=== PATIENT | male | born 1935 | race Caucasian/White ===

== ENCOUNTER 2018-08-15 16:36 | Inpatient (IN) | payer MEDICARE, BC, MEDICAID ==
[2018-08-15 17:03] LABS: ADD MAN DIFF? NO
[2018-08-15] MEDS ORDERED: ATROPINE 1 MG/10 ML SYRINGE (17:04)
[2018-08-15] MEDS: ATROPINE 0.4 MG INJ IV (17:04)
[2018-08-15 17:12] LABS: WHITE BLOOD COUNT 9.7 10^3/ul (4.8-10.8)
[2018-08-15 17:12] LABS: BASOPHIL # 0.1 10^3/ul (0.0-0.1); BASOPHILS % 0.7 % (0.0-2.0); EOSINOPHILS # 0.6 10^3/ul (0.0-0.5); EOSINOPHILS % 5.8 % (0.0-7.0); HEMATOCRIT 40.7 % (42.0-52.0); HEMOGLOBIN 12.3 g/dl (14.0-18.0); LYMPHOCYTES # 2.2 10^3/ul (0.8-2.9); LYMPHOCYTES % 22.8 % (15.0-51.0); MEAN CORPUSCULAR HEMOGLOBIN 24.7 pg (29.0-33.0); MEAN CORPUSCULAR HGB CONC 30.2 g/dl (32.0-37.0); MEAN CORPUSCULAR VOLUME 81.9 fl (82.0-101.0); MEAN PLATELET VOLUME 11.3 fl (7.4-10.4); MONOCYTE # 0.8 10^3/ul (0.3-0.9); MONOCYTES % 8.6 % (0.0-11.0); NEUTROPHILS % 61.8 % (39.0-77.0); PLATELET COUNT 322 10^3/UL (140-415); RED BLOOD COUNT 4.97 10^6/ul (4.70-6.10); RED CELL DISTRIBUTION WIDTH 17.9 % (11.5-14.5)
[2018-08-15 17:31] LABS: ANION GAP 6 (5-13); BLOOD UREA NITROGEN 29 mg/dl (7-20); CALCIUM 8.6 mg/dl (8.4-10.2); CARBON DIOXIDE 30 mmol/L (21-31); CHLORIDE 108 mmol/L (97-110); CREATININE 0.69 mg/dl (0.61-1.24); GLUCOSE 113 mg/dl (70-220); POTASSIUM 4.4 mmol/L (3.5-5.1); SODIUM 144 mmol/L (135-144)
[2018-08-15 17:42] LABS: TROPONIN-I < 0.012 ng/ml (0.000-0.120)
[2018-08-15] MEDS: ATROPINE 1 MG/10 ML SYRINGE IV ×3 (18:34→22:15)
[2018-08-15] MEDS: SOD CHLORIDE 0.9% 100 ML (18:39)
[2018-08-15] MEDS: IOHEXOL 100 ML (18:39)
[2018-08-15] MEDS: FUROSEMIDE 20 MG INJ IV (19:22)
[2018-08-15] MEDS ORDERED: GLUCAGON 1 MG INJ IM (19:30)
[2018-08-15] MEDS ORDERED: GLUCOSE GEL 15 GRAM TUBE BUCCAL (19:30)
[2018-08-15] MEDS ORDERED: GLUCOSE GEL 15 GRAM TUBE PO ×2 (19:30)
[2018-08-15] MEDS ORDERED: DEXTROSE 50% 50 ML SYRINGE IV ×2 (19:30)
[2018-08-15] MEDS: SOD CHLORIDE 0.9% 1,000 ML IV (19:39)
[2018-08-15 19:48] LABS: HEMOGLOBIN A1C 8.4 % (0-5.9)
[2018-08-15] MEDS: INSULIN ASPART [NOVOLOG] 3 ML PEN SC (21:00)
[2018-08-15] MEDS: HEPARIN 5,000 UNIT/1 ML VIAL SC (21:18)
[2018-08-15 23:22] LABS: CK INDEX 1.1; CK-MB 0.38 ng/ml (0.0-2.4); CREATINE KINASE 35 IU/L (23-200); TROPONIN-I < 0.012 ng/ml (0.000-0.120)
[2018-08-15] MEDS: ALBUTEROL 0.083% (NEB) 2.5 MG/3 ML AMP HHN (23:49)
[2018-08-16 05:19] LABS: ADD MAN DIFF? NO
[2018-08-16] MEDS: SOD CHLORIDE 0.9% 1,000 ML IV (05:19)
[2018-08-16] MEDS: FUROSEMIDE 40 MG TAB PO (05:19)
[2018-08-16 05:26] LABS: BASOPHIL # 0.1 10^3/ul (0.0-0.1); BASOPHILS % 0.7 % (0.0-2.0); EOSINOPHILS # 0.4 10^3/ul (0.0-0.5); EOSINOPHILS % 4.1 % (0.0-7.0); HEMATOCRIT 38.3 % (42.0-52.0); HEMOGLOBIN 11.5 g/dl (14.0-18.0); LYMPHOCYTES # 1.6 10^3/ul (0.8-2.9); LYMPHOCYTES % 18.1 % (15.0-51.0); MEAN CORPUSCULAR HEMOGLOBIN 24.7 pg (29.0-33.0); MEAN CORPUSCULAR VOLUME 82.2 fl (82.0-101.0); MEAN PLATELET VOLUME 12.7 fl (7.4-10.4); MONOCYTE # 0.7 10^3/ul (0.3-0.9); MONOCYTES % 7.3 % (0.0-11.0); NEUTROPHIL # 6.2 10^3/ul (1.6-7.5); NEUTROPHILS % 69.5 % (39.0-77.0); PLATELET COUNT 280 10^3/UL (140-415); RED BLOOD COUNT 4.66 10^6/ul (4.70-6.10); RED CELL DISTRIBUTION WIDTH 18.1 % (11.5-14.5)
[2018-08-16 05:54] LABS: CREATINE KINASE 54 IU/L (23-200)
[2018-08-16 05:56] LABS: ALBUMIN 3.4 g/dl (3.3-4.9); ANION GAP 5 (5-13); BLOOD UREA NITROGEN 25 mg/dl (7-20); CALCIUM 8.1 mg/dl (8.4-10.2); CARBON DIOXIDE 30 mmol/L (21-31); CHLORIDE 106 mmol/L (97-110); CREATININE 0.62 mg/dl (0.61-1.24); GLUCOSE 188 mg/dl (70-220); PHOSPHORUS 4.9 mg/dl (2.5-4.9); POTASSIUM 5.3 mmol/L (3.5-5.1); SODIUM 141 mmol/L (135-144)
[2018-08-16 06:06] LABS: CK INDEX 0.9; CK-MB 0.49 ng/ml (0.0-2.4); TROPONIN-I 0.019 ng/ml (0.000-0.120)
[2018-08-16 06:16] LABS: FREE T4 (FREE THYROXINE) 1.06 ng/dl (0.85-1.93)
[2018-08-16 06:17] LABS: FREE T3 3.24 pg/ml (2.77-5.27)
[2018-08-16] MEDS: INSULIN ASPART [NOVOLOG] 3 ML PEN SC ×4 (08:28→21:00)
[2018-08-16] MEDS: LISINOPRIL 10 MG TAB PO (08:38)
[2018-08-16] MEDS: ASPIRIN (EC) 81 MG TAB PO (08:38)
[2018-08-16] MEDS: MAGNESIUM HYDROXIDE 30ML CUP PO (08:38)
[2018-08-16] MEDS: DOCUSATE SODIUM 100 MG CAP PO ×2 (08:38→21:04)
[2018-08-16] MEDS: HEPARIN 5,000 UNIT/1 ML VIAL SC ×2 (08:44→21:10)
[2018-08-16] MEDS: NPH, HUMAN INSULIN ISOPHANE 3ML VIAL SC ×2 (08:45→21:00)
[2018-08-16] MEDS ORDERED: DOXYCYCLINE 100 MG in SOD CHLORIDE 0.9% 250 ML IVPB (09:30)
[2018-08-16 10:29] LABS: POTASSIUM 4.3 mmol/L (3.5-5.1)
[2018-08-16] MEDS: CEFAZOLIN 1 GM/50 ML (PMX) 50 ML IVPB ×2 (11:58→20:40)
[2018-08-16] MEDS ORDERED: CEFAZOLIN 1 GM/50 ML (PMX) 50 ML IVPB (14:00)
[2018-08-16] MEDS: DOXYCYCLINE 100 MG in SOD CHLORIDE 0.9% 250 ML IVPB ×2 (15:15→23:20)
[2018-08-16] MEDS: FUROSEMIDE 20 MG INJ IV (18:53)
[2018-08-16] MEDS ORDERED: MIDAZOLAM 1 MG/ML 2 ML INJ (19:22)
[2018-08-16] MEDS ORDERED: FENTAnyl 50 MCG/ML VIAL (19:23)
[2018-08-16] MEDS ORDERED: PROPOFOL 100 ML (19:36)
[2018-08-16] MEDS ORDERED: LIDOCAINE 2% (SDV) 5 ML INJ (19:36)
[2018-08-16] MEDS ORDERED: CEFAZOLIN 1 GM INJ (19:36)
[2018-08-16] MEDS: LIDOCAINE 1%/EPI (1:100,000) (MDV) 20 ML (19:44)
[2018-08-16] MEDS: IOHEXOL 300MG/ML 30 ML BTL (19:50)
[2018-08-16] MEDS: POLYMYXIN/BACITRACIN 1L IRRIG (19:56)
[2018-08-16] MEDS ORDERED: hydrALAzine 20 MG INJ IV (20:30)
[2018-08-16] MEDS ORDERED: DIPHENHYDRAMINE 50 MG INJ IV (20:30)
[2018-08-16] MEDS ORDERED: ONDANSETRON 4 MG INJ IV (20:30)
[2018-08-16] MEDS ORDERED: EPHEDrine SULFATE 50 MG/5 ML SYG IV (20:30)
[2018-08-16] MEDS ORDERED: FENTAnyl 50 MCG/ML VIAL IV ×3 (20:30)
[2018-08-16] MEDS ORDERED: LABETALOL HCL 20MG INJ IV (20:30)
[2018-08-16] MEDS ORDERED: ALBUTEROL 0.083% (NEB) 2.5 MG/3 ML AMP HHN (20:30)
[2018-08-16] MEDS ORDERED: MIDAZOLAM 1 MG/ML 2 ML INJ IV (20:30)
[2018-08-16] MEDS: SENNA TAB PO (21:04)
[2018-08-16] MEDS: ATORVASTATIN 40 MG TAB PO (21:05)
[2018-08-16] MEDS: FAMOTIDINE 20 MG TAB PO (21:05)
[2018-08-16] MEDS: morphine 2 MG INJ IV (22:57)
[2018-08-17] MEDS: CEFAZOLIN 2 GM/50 ML (PMX) 50 ML IVPB (06:15)
[2018-08-17] MEDS: FUROSEMIDE 20 MG INJ IV ×2 (06:16→17:35)
[2018-08-17 07:31] LABS: ADD MAN DIFF? NO
[2018-08-17 07:34] LABS: BASOPHIL # 0.1 10^3/ul (0.0-0.1); BASOPHILS % 0.4 % (0.0-2.0); EOSINOPHILS % 0.3 % (0.0-7.0); HEMATOCRIT 35.7 % (42.0-52.0); LYMPHOCYTES # 1.4 10^3/ul (0.8-2.9); MEAN CORPUSCULAR HEMOGLOBIN 24.9 pg (29.0-33.0); MEAN CORPUSCULAR HGB CONC 30.8 g/dl (32.0-37.0); MEAN PLATELET VOLUME 10.9 fl (7.4-10.4); MONOCYTE # 0.9 10^3/ul (0.3-0.9); MONOCYTES % 6.7 % (0.0-11.0); NEUTROPHIL # 10.5 10^3/ul (1.6-7.5); NEUTROPHILS % 81.1 % (39.0-77.0); PLATELET COUNT 245 10^3/UL (140-415); RED BLOOD COUNT 4.41 10^6/ul (4.70-6.10); RED CELL DISTRIBUTION WIDTH 17.7 % (11.5-14.5)
[2018-08-17 07:34] LABS: WHITE BLOOD COUNT 12.9 10^3/ul (4.8-10.8)
[2018-08-17 08:06] LABS: ANION GAP 8 (5-13); BLOOD UREA NITROGEN 16 mg/dl (7-20); CALCIUM 7.8 mg/dl (8.4-10.2); CARBON DIOXIDE 29 mmol/L (21-31); CHLORIDE 104 mmol/L (97-110); CREATININE 0.59 mg/dl (0.61-1.24); GLUCOSE 205 mg/dl (70-220); POTASSIUM 3.7 mmol/L (3.5-5.1); SODIUM 141 mmol/L (135-144)
[2018-08-17 08:07] LABS: CHOL/HDL RATIO 5.5 RATIO; HDL CHOLESTEROL 20 mg/dl (31-75); LDL CHOLESTEROL,CALCULATED 67 mg/dl; TRIGLYCERIDES 116 mg/dl (0-149)
[2018-08-17 08:07] LABS: CHOLESTEROL 110 mg/dl (100-200)
[2018-08-17] MEDS: HEPARIN 5,000 UNIT/1 ML VIAL SC ×2 (09:22→20:54)
[2018-08-17] MEDS: DOXYCYCLINE 100 MG in SOD CHLORIDE 0.9% 250 ML IVPB ×2 (09:28→20:58)
[2018-08-17] MEDS: MAGNESIUM HYDROXIDE 30ML CUP PO (09:28)
[2018-08-17] MEDS: FAMOTIDINE 20 MG TAB PO ×2 (09:29→20:26)
[2018-08-17] MEDS: LISINOPRIL 10 MG TAB PO (09:29)
[2018-08-17] MEDS: ASPIRIN (EC) 81 MG TAB PO (09:29)
[2018-08-17] MEDS: DOCUSATE SODIUM 100 MG CAP PO ×2 (09:29→20:26)
[2018-08-17] MEDS: HYDROCHLOROTHIAZIDE 12.5 MG CAP PO (09:29)
[2018-08-17] MEDS: INSULIN ASPART [NOVOLOG] 3 ML PEN SC ×4 (09:45→20:55)
[2018-08-17] MEDS: NPH, HUMAN INSULIN ISOPHANE 3ML VIAL SC ×2 (09:46→20:53)
[2018-08-17] MEDS ORDERED: DOCUSATE SODIUM 100 MG CAP PO (11:00)
[2018-08-17] MEDS: CEFAZOLIN 1 GM/50 ML (PMX) 50 ML IVPB ×2 (13:27→22:06)
[2018-08-17] MEDS: ATORVASTATIN 40 MG TAB PO (20:26)
[2018-08-17] MEDS: SENNA TAB PO (20:26)
[2018-08-18] MEDS: NA PHOSPHATE/BIPHOS 133 ML ENEMA PR (01:12)
[2018-08-18] MEDS: FUROSEMIDE 20 MG INJ IV (05:04)
[2018-08-18] MEDS: CEFAZOLIN 1 GM/50 ML (PMX) 50 ML IVPB (05:05)
[2018-08-18 06:50] LABS: ADD MAN DIFF? NO
[2018-08-18 06:57] LABS: BASOPHIL # 0.1 10^3/ul (0.0-0.1); BASOPHILS % 0.5 % (0.0-2.0); EOSINOPHILS # 0.2 10^3/ul (0.0-0.5); EOSINOPHILS % 2.3 % (0.0-7.0); HEMATOCRIT 34.9 % (42.0-52.0); HEMOGLOBIN 10.8 g/dl (14.0-18.0); LYMPHOCYTES # 1.7 10^3/ul (0.8-2.9); MEAN CORPUSCULAR HGB CONC 30.9 g/dl (32.0-37.0); MEAN CORPUSCULAR VOLUME 80.8 fl (82.0-101.0); MEAN PLATELET VOLUME 11.5 fl (7.4-10.4); MONOCYTE # 0.7 10^3/ul (0.3-0.9); MONOCYTES % 7.9 % (0.0-11.0); NEUTROPHIL # 6.5 10^3/ul (1.6-7.5); NEUTROPHILS % 71.1 % (39.0-77.0); PLATELET COUNT 241 10^3/UL (140-415); RED BLOOD COUNT 4.32 10^6/ul (4.70-6.10); RED CELL DISTRIBUTION WIDTH 17.7 % (11.5-14.5)
[2018-08-18 06:57] LABS: WHITE BLOOD COUNT 9.2 10^3/ul (4.8-10.8)
[2018-08-18 07:21] LABS: ANION GAP 7 (5-13); BLOOD UREA NITROGEN 17 mg/dl (7-20); CALCIUM 7.6 mg/dl (8.4-10.2); CARBON DIOXIDE 32 mmol/L (21-31); CHLORIDE 102 mmol/L (97-110); CREATININE 0.58 mg/dl (0.61-1.24); GLUCOSE 164 mg/dl (70-220); MAGNESIUM 1.6 mg/dl (1.7-2.5); PHOSPHORUS 3.6 mg/dl (2.5-4.9); POTASSIUM 3.4 mmol/L (3.5-5.1); SODIUM 141 mmol/L (135-144)
[2018-08-18] MEDS: MAGNESIUM HYDROXIDE 30ML CUP PO (08:21)
[2018-08-18] MEDS: DOCUSATE SODIUM 100 MG CAP PO ×2 (08:22→20:30)
[2018-08-18] MEDS: HYDROCHLOROTHIAZIDE 12.5 MG CAP PO (08:22)
[2018-08-18] MEDS: ASPIRIN (EC) 81 MG TAB PO (08:22)
[2018-08-18] MEDS: FAMOTIDINE 20 MG TAB PO ×2 (08:23→20:30)
[2018-08-18] MEDS: LISINOPRIL 10 MG TAB PO (08:23)
[2018-08-18] MEDS: DOXYCYCLINE 100 MG in SOD CHLORIDE 0.9% 250 ML IVPB (08:35)
[2018-08-18] MEDS: NPH, HUMAN INSULIN ISOPHANE 3ML VIAL SC ×2 (08:43→20:41)
[2018-08-18] MEDS: INSULIN ASPART [NOVOLOG] 3 ML PEN SC ×4 (08:43→20:41)
[2018-08-18] MEDS: HEPARIN 5,000 UNIT/1 ML VIAL SC ×2 (08:44→20:42)
[2018-08-18] MEDS: CEPHALEXIN 500 MG CAP PO ×2 (11:56→17:04)
[2018-08-18] MEDS: POTASSIUM CHLORIDE 20 MEQ POWDER FOR ORAL SOLN PO (12:45)
[2018-08-18] MEDS: MAGNESIUM SULFATE 2 GM/50 ML 50 ML IVPB (12:46)
[2018-08-18] MEDS: FUROSEMIDE 40 MG TAB PO (17:04)
[2018-08-18] MEDS: DOXYCYCLINE 100 MG TAB PO (20:30)
[2018-08-18] MEDS: SENNA TAB PO (20:30)
[2018-08-18] MEDS: ATORVASTATIN 40 MG TAB PO (20:30)
[2018-08-19] MEDS: CEPHALEXIN 500 MG CAP PO ×5 (00:08→23:12)
[2018-08-19] MEDS: FUROSEMIDE 40 MG TAB PO (06:06)
[2018-08-19 08:28] LABS: ADD MAN DIFF? NO
[2018-08-19 08:41] LABS: BASOPHIL # 0.1 10^3/ul (0.0-0.1); BASOPHILS % 0.6 % (0.0-2.0); EOSINOPHILS # 0.4 10^3/ul (0.0-0.5); EOSINOPHILS % 3.4 % (0.0-7.0); HEMOGLOBIN 11.4 g/dl (14.0-18.0); LYMPHOCYTES # 1.5 10^3/ul (0.8-2.9); MEAN CORPUSCULAR HEMOGLOBIN 24.8 pg (29.0-33.0); MEAN CORPUSCULAR HGB CONC 30.8 g/dl (32.0-37.0); MEAN CORPUSCULAR VOLUME 80.6 fl (82.0-101.0); MEAN PLATELET VOLUME 11.7 fl (7.4-10.4); MONOCYTE # 0.8 10^3/ul (0.3-0.9); MONOCYTES % 7.5 % (0.0-11.0); NEUTROPHIL # 7.4 10^3/ul (1.6-7.5); NEUTROPHILS % 72.9 % (39.0-77.0); PLATELET COUNT 264 10^3/UL (140-415); RED BLOOD COUNT 4.59 10^6/ul (4.70-6.10); RED CELL DISTRIBUTION WIDTH 17.7 % (11.5-14.5)
[2018-08-19 08:41] LABS: WHITE BLOOD COUNT 10.2 10^3/ul (4.8-10.8)
[2018-08-19] MEDS: INSULIN ASPART [NOVOLOG] 3 ML PEN SC ×4 (08:45→21:00)
[2018-08-19 08:58] LABS: ANION GAP 9 (5-13); BLOOD UREA NITROGEN 14 mg/dl (7-20); CALCIUM 8.4 mg/dl (8.4-10.2); CARBON DIOXIDE 30 mmol/L (21-31); CHLORIDE 101 mmol/L (97-110); CREATININE 0.56 mg/dl (0.61-1.24); GLUCOSE 192 mg/dl (70-220); PHOSPHORUS 3.6 mg/dl (2.5-4.9); POTASSIUM 3.9 mmol/L (3.5-5.1); SODIUM 140 mmol/L (135-144)
[2018-08-19] MEDS: FAMOTIDINE 20 MG TAB PO ×2 (09:05→21:27)
[2018-08-19] MEDS: LISINOPRIL 10 MG TAB PO (09:05)
[2018-08-19] MEDS: ASPIRIN (EC) 81 MG TAB PO (09:05)
[2018-08-19] MEDS: DOXYCYCLINE 100 MG TAB PO ×2 (09:05→21:27)
[2018-08-19] MEDS: DOCUSATE SODIUM 100 MG CAP PO ×2 (09:06→21:27)
[2018-08-19] MEDS: MAGNESIUM HYDROXIDE 30ML CUP PO (09:06)
[2018-08-19] MEDS: HYDROCHLOROTHIAZIDE 12.5 MG CAP PO (09:06)
[2018-08-19] MEDS: HEPARIN 5,000 UNIT/1 ML VIAL SC ×2 (09:13→21:54)
[2018-08-19] MEDS: NPH, HUMAN INSULIN ISOPHANE 3ML VIAL SC ×2 (10:45→21:54)
[2018-08-19] MEDS: SOD CHLORIDE 0.9% 100 ML (13:10)
[2018-08-19] MEDS: IOHEXOL 300MG/ML 150 ML BTL (13:10)
[2018-08-19] MEDS: FUROSEMIDE 20 MG TAB PO (17:35)
[2018-08-19] MEDS: SENNA TAB PO (21:27)
[2018-08-19] MEDS: ATORVASTATIN 40 MG TAB PO (21:27)
[2018-08-19] MEDS: hydrALAzine 20 MG INJ IV (23:08)
[2018-08-20] MEDS: morphine 2 MG INJ IV (04:47)
[2018-08-20 06:12] LABS: ADD MAN DIFF? NO
[2018-08-20 06:21] LABS: WHITE BLOOD COUNT 9.6 10^3/ul (4.8-10.8)
[2018-08-20 06:21] LABS: BASOPHIL # 0.1 10^3/ul (0.0-0.1); BASOPHILS % 0.5 % (0.0-2.0); EOSINOPHILS # 0.3 10^3/ul (0.0-0.5); EOSINOPHILS % 3.4 % (0.0-7.0); HEMATOCRIT 36.9 % (42.0-52.0); HEMOGLOBIN 11.5 g/dl (14.0-18.0); LYMPHOCYTES # 1.7 10^3/ul (0.8-2.9); LYMPHOCYTES % 17.9 % (15.0-51.0); MEAN CORPUSCULAR HEMOGLOBIN 24.9 pg (29.0-33.0); MEAN CORPUSCULAR HGB CONC 31.2 g/dl (32.0-37.0); MEAN PLATELET VOLUME 11.4 fl (7.4-10.4); MONOCYTE # 0.7 10^3/ul (0.3-0.9); MONOCYTES % 7.7 % (0.0-11.0); NEUTROPHIL # 6.7 10^3/ul (1.6-7.5); NEUTROPHILS % 70.2 % (39.0-77.0); PLATELET COUNT 283 10^3/UL (140-415); RED BLOOD COUNT 4.61 10^6/ul (4.70-6.10); RED CELL DISTRIBUTION WIDTH 17.9 % (11.5-14.5)
[2018-08-20] MEDS: CEPHALEXIN 500 MG CAP PO ×3 (06:45→17:46)
[2018-08-20] MEDS: FUROSEMIDE 20 MG TAB PO ×2 (06:46→17:46)
[2018-08-20 06:52] LABS: ANION GAP 9 (5-13); BLOOD UREA NITROGEN 19 mg/dl (7-20); CALCIUM 8.2 mg/dl (8.4-10.2); CARBON DIOXIDE 31 mmol/L (21-31); CHLORIDE 100 mmol/L (97-110); CREATININE 0.63 mg/dl (0.61-1.24); GLUCOSE 147 mg/dl (70-220); MAGNESIUM 2.1 mg/dl (1.7-2.5); PHOSPHORUS 4.7 mg/dl (2.5-4.9); POTASSIUM 3.9 mmol/L (3.5-5.1); SODIUM 140 mmol/L (135-144)
[2018-08-20] MEDS: INSULIN ASPART [NOVOLOG] 3 ML PEN SC ×4 (08:39→22:55)
[2018-08-20] MEDS: DOCUSATE SODIUM 100 MG CAP PO ×2 (08:41→22:54)
[2018-08-20] MEDS: FAMOTIDINE 20 MG TAB PO ×2 (08:42→22:54)
[2018-08-20] MEDS: DOXYCYCLINE 100 MG TAB PO ×2 (08:42→22:54)
[2018-08-20] MEDS: ASPIRIN (EC) 81 MG TAB PO (08:43)
[2018-08-20] MEDS: HYDROCHLOROTHIAZIDE 12.5 MG CAP PO (08:43)
[2018-08-20] MEDS: HEPARIN 5,000 UNIT/1 ML VIAL SC ×2 (08:44→22:59)
[2018-08-20] MEDS: MAGNESIUM HYDROXIDE 30ML CUP PO (08:51)
[2018-08-20] MEDS: LISINOPRIL 20 MG TAB PO (08:53)
[2018-08-20] MEDS: NPH, HUMAN INSULIN ISOPHANE 3ML VIAL SC ×2 (09:27→22:58)
[2018-08-20 12:47] LABS: INR 0.94; PROTIME 12.7 Sec (11.9-14.9)
[2018-08-20 12:52] LABS: PARTIAL THROMBOPLASTIN TIME 30.3 Sec (23.0-35.0)
[2018-08-20] MEDS: NA PHOSPHATE/BIPHOS 133 ML ENEMA PR ×2 (17:05→18:34)
[2018-08-20] MEDS: CARBOXYMETHYLCELLULOSE 0.5% 0.4 ML OPH BOTH EYES ×2 (17:06→22:59)
[2018-08-20] MEDS ORDERED: LACTULOSE 30ML CUP PO (18:00)
[2018-08-20] MEDS: ATORVASTATIN 40 MG TAB PO (22:54)
[2018-08-20] MEDS: SENNA TAB PO (22:54)
[2018-08-20] MEDS: LIDOCAINE 1% (MPF) 5 ML VIAL SC (22:55)
[2018-08-20] MEDS: LACTULOSE 30ML CUP PO (23:13)
[2018-08-21] MEDS: CEPHALEXIN 500 MG CAP PO ×4 (00:58→17:44)
[2018-08-21 05:49] LABS: ADD MAN DIFF? NO
[2018-08-21 05:56] LABS: BASOPHIL # 0.1 10^3/ul (0.0-0.1); BASOPHILS % 0.5 % (0.0-2.0); EOSINOPHILS # 0.4 10^3/ul (0.0-0.5); HEMATOCRIT 36.6 % (42.0-52.0); HEMOGLOBIN 11.4 g/dl (14.0-18.0); MEAN CORPUSCULAR HEMOGLOBIN 25.2 pg (29.0-33.0); MEAN CORPUSCULAR HGB CONC 31.1 g/dl (32.0-37.0); MEAN PLATELET VOLUME 11.4 fl (7.4-10.4); MONOCYTES % 9.6 % (0.0-11.0); NEUTROPHIL # 6.5 10^3/ul (1.6-7.5); NEUTROPHILS % 65.2 % (39.0-77.0); PLATELET COUNT 290 10^3/UL (140-415); RED BLOOD COUNT 4.52 10^6/ul (4.70-6.10); RED CELL DISTRIBUTION WIDTH 17.7 % (11.5-14.5)
[2018-08-21] MEDS: FUROSEMIDE 20 MG TAB PO ×2 (06:36→17:44)
[2018-08-21] MEDS: MAGNESIUM HYDROXIDE 30ML CUP PO ×2 (06:36→09:41)
[2018-08-21] MEDS: BISACODYL 10 MG SUPP PR (06:36)
[2018-08-21 06:43] LABS: ANION GAP 9 (5-13); BLOOD UREA NITROGEN 21 mg/dl (7-20); CALCIUM 8.5 mg/dl (8.4-10.2); CARBON DIOXIDE 32 mmol/L (21-31); CHLORIDE 99 mmol/L (97-110); CREATININE 0.67 mg/dl (0.61-1.24); GLUCOSE 154 mg/dl (70-220); MAGNESIUM 2.2 mg/dl (1.7-2.5); PHOSPHORUS 4.9 mg/dl (2.5-4.9); POTASSIUM 3.8 mmol/L (3.5-5.1); SODIUM 140 mmol/L (135-144)
[2018-08-21] MEDS: NA PHOSPHATE/BIPHOS 133 ML ENEMA PR ×2 (08:00→09:34)
[2018-08-21] MEDS: CARBOXYMETHYLCELLULOSE 0.5% 0.4 ML OPH BOTH EYES ×5 (09:31→22:37)
[2018-08-21] MEDS: DOCUSATE SODIUM 100 MG CAP PO ×2 (09:32→21:02)
[2018-08-21] MEDS: DOXYCYCLINE 100 MG TAB PO ×2 (09:32→21:02)
[2018-08-21] MEDS: LISINOPRIL 20 MG TAB PO (09:33)
[2018-08-21] MEDS: ASPIRIN (EC) 81 MG TAB PO (09:33)
[2018-08-21] MEDS: FAMOTIDINE 20 MG TAB PO ×2 (09:33→21:02)
[2018-08-21] MEDS: HYDROCHLOROTHIAZIDE 12.5 MG CAP PO (09:33)
[2018-08-21] MEDS: HEPARIN 5,000 UNIT/1 ML VIAL SC ×2 (09:37→21:05)
[2018-08-21] MEDS: NPH, HUMAN INSULIN ISOPHANE 3ML VIAL SC ×2 (09:38→21:04)
[2018-08-21] MEDS: INSULIN ASPART [NOVOLOG] 3 ML PEN SC ×4 (09:38→21:04)
[2018-08-21] MEDS: metFORMIN 500 MG TAB PO ×2 (10:32→17:44)
[2018-08-21] MEDS: ATORVASTATIN 40 MG TAB PO (21:02)
[2018-08-21] MEDS: SENNA TAB PO (21:02)
[2018-08-22] MEDS: CEPHALEXIN 500 MG CAP PO ×4 (00:41→17:22)
[2018-08-22 05:19] LABS: ADD MAN DIFF? NO
[2018-08-22 05:31] LABS: WHITE BLOOD COUNT 9.7 10^3/ul (4.8-10.8)
[2018-08-22 05:31] LABS: BASOPHIL # 0.1 10^3/ul (0.0-0.1); BASOPHILS % 0.5 % (0.0-2.0); EOSINOPHILS # 0.5 10^3/ul (0.0-0.5); EOSINOPHILS % 4.6 % (0.0-7.0); HEMATOCRIT 36.6 % (42.0-52.0); HEMOGLOBIN 11.3 g/dl (14.0-18.0); LYMPHOCYTES % 20.2 % (15.0-51.0); MEAN CORPUSCULAR HEMOGLOBIN 25.1 pg (29.0-33.0); MEAN CORPUSCULAR HGB CONC 30.9 g/dl (32.0-37.0); MEAN CORPUSCULAR VOLUME 81.3 fl (82.0-101.0); MEAN PLATELET VOLUME 11.5 fl (7.4-10.4); NEUTROPHIL # 6.2 10^3/ul (1.6-7.5); NEUTROPHILS % 64.2 % (39.0-77.0); PLATELET COUNT 296 10^3/UL (140-415); RED CELL DISTRIBUTION WIDTH 17.8 % (11.5-14.5)
[2018-08-22] MEDS: FUROSEMIDE 20 MG TAB PO ×2 (05:45→17:23)
[2018-08-22 06:01] LABS: ANION GAP 6 (5-13); BLOOD UREA NITROGEN 25 mg/dl (7-20); CALCIUM 8.1 mg/dl (8.4-10.2); CARBON DIOXIDE 34 mmol/L (21-31); CHLORIDE 99 mmol/L (97-110); CREATININE 0.76 mg/dl (0.61-1.24); GLUCOSE 169 mg/dl (70-220); MAGNESIUM 2.4 mg/dl (1.7-2.5); PHOSPHORUS 4.3 mg/dl (2.5-4.9); POTASSIUM 3.9 mmol/L (3.5-5.1); SODIUM 139 mmol/L (135-144)
[2018-08-22] MEDS: CARBOXYMETHYLCELLULOSE 0.5% 0.4 ML OPH BOTH EYES ×4 (08:16→21:00)
[2018-08-22] MEDS: DOXYCYCLINE 100 MG TAB PO ×2 (08:16→21:11)
[2018-08-22] MEDS: FAMOTIDINE 20 MG TAB PO ×2 (08:16→21:11)
[2018-08-22] MEDS: DOCUSATE SODIUM 100 MG CAP PO ×2 (08:16→21:11)
[2018-08-22] MEDS: ASPIRIN (EC) 81 MG TAB PO (08:16)
[2018-08-22] MEDS: LISINOPRIL 20 MG TAB PO (08:17)
[2018-08-22] MEDS: HYDROCHLOROTHIAZIDE 12.5 MG CAP PO (08:17)
[2018-08-22] MEDS: MAGNESIUM HYDROXIDE 30ML CUP PO (08:17)
[2018-08-22] MEDS: INSULIN ASPART [NOVOLOG] 3 ML PEN SC ×4 (08:19→21:31)
[2018-08-22] MEDS: HEPARIN 5,000 UNIT/1 ML VIAL SC ×2 (08:19→21:30)
[2018-08-22] MEDS: NPH, HUMAN INSULIN ISOPHANE 3ML VIAL SC ×2 (08:20→21:32)
[2018-08-22] MEDS: hydrALAzine 20 MG INJ IV (16:20)
[2018-08-22] MEDS: ACETAMINOPHEN 325 MG TAB PO (17:22)
[2018-08-22] MEDS: metFORMIN 500 MG TAB PO (17:22)
[2018-08-22] MEDS: ATORVASTATIN 40 MG TAB PO (21:11)
[2018-08-22] MEDS: SENNA TAB PO (21:11)
[2018-08-22] MEDS: LIDOCAINE/MYLANTA 40 ML BTL PO (21:36)
[2018-08-23] MEDS: CEPHALEXIN 500 MG CAP PO ×4 (00:54→18:10)
[2018-08-23 05:14] LABS: ADD MAN DIFF? NO
[2018-08-23 05:25] LABS: WHITE BLOOD COUNT 10.5 10^3/ul (4.8-10.8)
[2018-08-23 05:25] LABS: BASOPHIL # 0.1 10^3/ul (0.0-0.1); BASOPHILS % 0.5 % (0.0-2.0); EOSINOPHILS # 0.3 10^3/ul (0.0-0.5); EOSINOPHILS % 2.9 % (0.0-7.0); HEMOGLOBIN 11.8 g/dl (14.0-18.0); LYMPHOCYTES # 1.7 10^3/ul (0.8-2.9); LYMPHOCYTES % 15.9 % (15.0-51.0); MEAN CORPUSCULAR HEMOGLOBIN 24.8 pg (29.0-33.0); MEAN CORPUSCULAR HGB CONC 30.3 g/dl (32.0-37.0); MEAN CORPUSCULAR VOLUME 81.9 fl (82.0-101.0); MEAN PLATELET VOLUME 11.2 fl (7.4-10.4); MONOCYTE # 0.9 10^3/ul (0.3-0.9); MONOCYTES % 8.1 % (0.0-11.0); NEUTROPHIL # 7.6 10^3/ul (1.6-7.5); NEUTROPHILS % 72.1 % (39.0-77.0); PLATELET COUNT 292 10^3/UL (140-415); RED BLOOD COUNT 4.76 10^6/ul (4.70-6.10); RED CELL DISTRIBUTION WIDTH 17.9 % (11.5-14.5)
[2018-08-23 05:58] LABS: ANION GAP 7 (5-13); BLOOD UREA NITROGEN 26 mg/dl (7-20); CALCIUM 8.4 mg/dl (8.4-10.2); CARBON DIOXIDE 31 mmol/L (21-31); CHLORIDE 100 mmol/L (97-110); CREATININE 0.76 mg/dl (0.61-1.24); GLUCOSE 214 mg/dl (70-220); MAGNESIUM 2.4 mg/dl (1.7-2.5); PHOSPHORUS 4.2 mg/dl (2.5-4.9); POTASSIUM 4.5 mmol/L (3.5-5.1); SODIUM 138 mmol/L (135-144)
[2018-08-23] MEDS: FUROSEMIDE 20 MG TAB PO ×2 (06:35→18:11)
[2018-08-23] MEDS: ASPIRIN (EC) 81 MG TAB PO (08:46)
[2018-08-23] MEDS: DOXYCYCLINE 100 MG TAB PO ×2 (08:46→20:27)
[2018-08-23] MEDS: DOCUSATE SODIUM 100 MG CAP PO ×2 (08:46→20:27)
[2018-08-23] MEDS: FAMOTIDINE 20 MG TAB PO ×2 (08:46→20:27)
[2018-08-23] MEDS: MAGNESIUM HYDROXIDE 30ML CUP PO (08:46)
[2018-08-23] MEDS: HYDROCHLOROTHIAZIDE 12.5 MG CAP PO (08:47)
[2018-08-23] MEDS: LISINOPRIL 20 MG TAB PO (08:47)
[2018-08-23] MEDS: HEPARIN 5,000 UNIT/1 ML VIAL SC ×2 (08:48→20:30)
[2018-08-23] MEDS: INSULIN ASPART [NOVOLOG] 3 ML PEN SC ×4 (08:48→20:29)
[2018-08-23] MEDS: NPH, HUMAN INSULIN ISOPHANE 3ML VIAL SC ×2 (08:49→20:30)
[2018-08-23] MEDS: CARBOXYMETHYLCELLULOSE 0.5% 0.4 ML OPH BOTH EYES ×5 (08:54→22:24)
[2018-08-23] MEDS: LACTULOSE 30ML CUP PO (11:19)
[2018-08-23] MEDS: metFORMIN 500 MG TAB PO (18:10)
[2018-08-23] MEDS: ATORVASTATIN 40 MG TAB PO (20:27)
[2018-08-23] MEDS: SENNA TAB PO (20:27)
[2018-08-23] MEDS: METOCLOPRAMIDE 10 MG INJ IV (21:29)
[2018-08-23] MEDS: MAGNESIUM CITRATE 300 ML BTL PO (22:24)
[2018-08-24] MEDS: CEPHALEXIN 500 MG CAP PO ×5 (00:28→23:28)
[2018-08-24] MEDS: FUROSEMIDE 20 MG TAB PO ×2 (06:04→18:16)
[2018-08-24] MEDS: POLYETHYLENE GLYCOL 17 GM PACKET PO (09:20)
[2018-08-24] MEDS: DOCUSATE SODIUM 100 MG CAP PO ×2 (09:20→20:26)
[2018-08-24] MEDS: HYDROCHLOROTHIAZIDE 12.5 MG CAP PO (09:20)
[2018-08-24] MEDS: ASPIRIN (EC) 81 MG TAB PO (09:20)
[2018-08-24] MEDS: FAMOTIDINE 20 MG TAB PO ×2 (09:20→20:26)
[2018-08-24] MEDS: CARBOXYMETHYLCELLULOSE 0.5% 0.4 ML OPH BOTH EYES ×4 (09:20→20:26)
[2018-08-24] MEDS: DOXYCYCLINE 100 MG TAB PO ×2 (09:20→20:31)
[2018-08-24] MEDS: MAGNESIUM HYDROXIDE 30ML CUP PO (09:21)
[2018-08-24] MEDS: LISINOPRIL 20 MG TAB PO (09:21)
[2018-08-24] MEDS: INSULIN ASPART [NOVOLOG] 3 ML PEN SC ×5 (09:25→20:30)
[2018-08-24] MEDS: HEPARIN 5,000 UNIT/1 ML VIAL SC ×2 (09:26→20:29)
[2018-08-24] MEDS: NPH, HUMAN INSULIN ISOPHANE 3ML VIAL SC ×2 (09:50→20:29)
[2018-08-24] MEDS: NA PHOSPHATE/BIPHOS 133 ML ENEMA PR ×2 (12:01)
[2018-08-24] MEDS: metFORMIN 500 MG TAB PO (18:24)
[2018-08-24] MEDS: ATORVASTATIN 40 MG TAB PO (20:26)
[2018-08-24] MEDS: SENNA TAB PO (20:26)
[2018-08-24] MEDS: ONDANSETRON 4 MG INJ IV (20:33)
[2018-08-24] MEDS: MAGNESIUM CITRATE 300 ML BTL PO (22:35)
[2018-08-25] MEDS: FUROSEMIDE 20 MG TAB PO ×2 (06:22→17:45)
[2018-08-25] MEDS: CEPHALEXIN 500 MG CAP PO ×3 (06:22→17:44)
[2018-08-25] MEDS: morphine 2 MG INJ IV (08:52)
[2018-08-25] MEDS: INSULIN ASPART [NOVOLOG] 3 ML PEN SC ×7 (08:56→21:21)
[2018-08-25] MEDS: NPH, HUMAN INSULIN ISOPHANE 3ML VIAL SC ×2 (08:59→21:22)
[2018-08-25] MEDS: CARBOXYMETHYLCELLULOSE 0.5% 0.4 ML OPH BOTH EYES ×4 (09:08→21:16)
[2018-08-25] MEDS: MAGNESIUM HYDROXIDE 30ML CUP PO (09:08)
[2018-08-25] MEDS: POLYETHYLENE GLYCOL 17 GM PACKET PO (09:08)
[2018-08-25] MEDS: FAMOTIDINE 20 MG TAB PO ×2 (09:09→21:16)
[2018-08-25] MEDS: DOCUSATE SODIUM 100 MG CAP PO ×2 (09:09→21:16)
[2018-08-25] MEDS: LISINOPRIL 20 MG TAB PO (09:09)
[2018-08-25] MEDS: DOXYCYCLINE 100 MG TAB PO ×2 (09:09→21:16)
[2018-08-25] MEDS: ASPIRIN (EC) 81 MG TAB PO (09:10)
[2018-08-25] MEDS: HYDROCHLOROTHIAZIDE 12.5 MG CAP PO (09:10)
[2018-08-25] MEDS: HEPARIN 5,000 UNIT/1 ML VIAL SC ×2 (09:13→21:21)
[2018-08-25] MEDS: metFORMIN 500 MG TAB PO ×2 (13:04→17:44)
[2018-08-25] MEDS: SENNA TAB PO (21:16)
[2018-08-25] MEDS: ATORVASTATIN 40 MG TAB PO (21:16)
[2018-08-25] MEDS: ONDANSETRON 4 MG INJ IV (21:16)
[2018-08-25] MEDS: MAGNESIUM CITRATE 300 ML BTL PO (23:27)
[2018-08-26] MEDS: morphine 2 MG INJ IV (00:10)
[2018-08-26] MEDS: CEPHALEXIN 500 MG CAP PO ×4 (00:18→17:03)
[2018-08-26] MEDS: NA PHOSPHATE/BIPHOS 133 ML ENEMA PR (00:43)
[2018-08-26] MEDS: METOCLOPRAMIDE 10 MG INJ IV ×2 (00:52→06:04)
[2018-08-26] MEDS: FUROSEMIDE 20 MG TAB PO ×2 (06:04→17:04)
[2018-08-26] MEDS: DOCUSATE SODIUM 100 MG CAP PO ×2 (08:43→21:03)
[2018-08-26] MEDS: CARBOXYMETHYLCELLULOSE 0.5% 0.4 ML OPH BOTH EYES ×4 (08:43→21:03)
[2018-08-26] MEDS: ASPIRIN (EC) 81 MG TAB PO (08:43)
[2018-08-26] MEDS: DOXYCYCLINE 100 MG TAB PO ×2 (08:43→21:04)
[2018-08-26] MEDS: metFORMIN 500 MG TAB PO ×2 (08:43→17:03)
[2018-08-26] MEDS: FAMOTIDINE 20 MG TAB PO ×2 (08:43→21:04)
[2018-08-26] MEDS: POLYETHYLENE GLYCOL 17 GM PACKET PO ×2 (08:44→17:04)
[2018-08-26] MEDS: MAGNESIUM HYDROXIDE 30ML CUP PO (08:44)
[2018-08-26] MEDS: HYDROCHLOROTHIAZIDE 12.5 MG CAP PO (08:44)
[2018-08-26] MEDS: LISINOPRIL 20 MG TAB PO (08:44)
[2018-08-26] MEDS: HEPARIN 5,000 UNIT/1 ML VIAL SC ×2 (08:45→21:07)
[2018-08-26] MEDS: INSULIN ASPART [NOVOLOG] 3 ML PEN SC ×7 (08:46→21:00)
[2018-08-26] MEDS: NPH, HUMAN INSULIN ISOPHANE 3ML VIAL SC ×2 (08:47→21:16)
[2018-08-26] MEDS: ACETAMINOPHEN 325 MG TAB PO (11:32)
[2018-08-26] MEDS: ATORVASTATIN 40 MG TAB PO (21:03)
[2018-08-26] MEDS: SENNA TAB PO (21:03)
[2018-08-27] MEDS: CEPHALEXIN 500 MG CAP PO ×5 (00:01→23:40)
[2018-08-27] MEDS: FUROSEMIDE 20 MG TAB PO ×2 (06:19→17:57)
[2018-08-27] MEDS: FAMOTIDINE 20 MG TAB PO ×2 (08:24→20:18)
[2018-08-27] MEDS: DOXYCYCLINE 100 MG TAB PO ×2 (08:24→20:18)
[2018-08-27] MEDS: DOCUSATE SODIUM 100 MG CAP PO ×2 (08:24→20:18)
[2018-08-27] MEDS: ASPIRIN (EC) 81 MG TAB PO (08:26)
[2018-08-27] MEDS: LISINOPRIL 20 MG TAB PO (08:26)
[2018-08-27] MEDS: HYDROCHLOROTHIAZIDE 12.5 MG CAP PO (08:26)
[2018-08-27] MEDS: metFORMIN 500 MG TAB PO ×2 (08:27→17:53)
[2018-08-27] MEDS: POLYETHYLENE GLYCOL 17 GM PACKET PO (08:29)
[2018-08-27] MEDS: MAGNESIUM HYDROXIDE 30ML CUP PO (08:30)
[2018-08-27] MEDS: HEPARIN 5,000 UNIT/1 ML VIAL SC ×2 (08:33→20:28)
[2018-08-27] MEDS: NPH, HUMAN INSULIN ISOPHANE 3ML VIAL SC (08:34)
[2018-08-27] MEDS: INSULIN ASPART [NOVOLOG] 3 ML PEN SC ×7 (08:35→20:28)
[2018-08-27] MEDS: CARBOXYMETHYLCELLULOSE 0.5% 0.4 ML OPH BOTH EYES ×4 (08:37→22:56)
[2018-08-27] MEDS: ATORVASTATIN 40 MG TAB PO (20:18)
[2018-08-27] MEDS: SENNA TAB PO (20:18)
[2018-08-27] MEDS: INSULIN GLARGINE [LANTus] (100 UNITS/ML) SYG SC (20:27)
[2018-08-27] MEDS: ACETAMINOPHEN 325 MG TAB PO (22:56)
[2018-08-28] MEDS: CEPHALEXIN 500 MG CAP PO ×4 (06:16→23:30)
[2018-08-28] MEDS: FUROSEMIDE 20 MG TAB PO ×2 (06:17→17:28)
[2018-08-28] MEDS: INSULIN ASPART [NOVOLOG] 3 ML PEN SC ×7 (07:50→20:16)
[2018-08-28] MEDS: metFORMIN 500 MG TAB PO ×2 (08:38→17:28)
[2018-08-28] MEDS: HEPARIN 5,000 UNIT/1 ML VIAL SC ×2 (08:41→20:17)
[2018-08-28] MEDS: FAMOTIDINE 20 MG TAB PO ×2 (08:44→20:11)
[2018-08-28] MEDS: LISINOPRIL 20 MG TAB PO (08:47)
[2018-08-28] MEDS: DOCUSATE SODIUM 100 MG CAP PO ×2 (08:48→20:11)
[2018-08-28] MEDS: ASPIRIN (EC) 81 MG TAB PO (08:48)
[2018-08-28] MEDS: CARBOXYMETHYLCELLULOSE 0.5% 0.4 ML OPH BOTH EYES ×4 (08:49→20:20)
[2018-08-28] MEDS: HYDROCHLOROTHIAZIDE 12.5 MG CAP PO (08:49)
[2018-08-28] MEDS: DOXYCYCLINE 100 MG TAB PO (08:49)
[2018-08-28] MEDS: POLYETHYLENE GLYCOL 17 GM PACKET PO (08:50)
[2018-08-28] MEDS: MAGNESIUM HYDROXIDE 30ML CUP PO (08:50)
[2018-08-28] MEDS: SENNA TAB PO (20:11)
[2018-08-28] MEDS: ATORVASTATIN 40 MG TAB PO (20:11)
[2018-08-28] MEDS: INSULIN GLARGINE [LANTus] (100 UNITS/ML) SYG SC (20:17)
[2018-08-29] MEDS: CEPHALEXIN 500 MG CAP PO (05:43)
[2018-08-29] MEDS: FUROSEMIDE 20 MG TAB PO (05:44)
[2018-08-29] MEDS: DOCUSATE SODIUM 100 MG CAP PO (08:30)
[2018-08-29] MEDS: FAMOTIDINE 20 MG TAB PO (08:31)
[2018-08-29] MEDS: metFORMIN 500 MG TAB PO (08:31)
[2018-08-29] MEDS: HYDROCHLOROTHIAZIDE 12.5 MG CAP PO (08:32)
[2018-08-29] MEDS: POLYETHYLENE GLYCOL 17 GM PACKET PO (08:33)
[2018-08-29] MEDS: ASPIRIN (EC) 81 MG TAB PO (08:33)
[2018-08-29] MEDS: LISINOPRIL 20 MG TAB PO (08:33)
[2018-08-29] MEDS: INSULIN ASPART [NOVOLOG] 3 ML PEN SC ×4 (08:36→12:36)
[2018-08-29] MEDS: HEPARIN 5,000 UNIT/1 ML VIAL SC (08:38)
[2018-08-29] MEDS: MAGNESIUM HYDROXIDE 30ML CUP PO (08:38)
[2018-08-29] MEDS: CARBOXYMETHYLCELLULOSE 0.5% 0.4 ML OPH BOTH EYES ×2 (08:41→12:38)
== END 2018-08-29 17:20 | disposition home health service (06) | DRG 243 ==
LOC: ICU 18:14 → TEL 08-18 03:06 → MS1 08-20 05:18 → E/R 16:36
PROVIDERS: Internal Medicine
PROC: 0JH606Z Insertion of Pacemaker, Dual Chamber into Chest Subcutaneous Tissue and Fascia, Open Approach (ICD-10-PCS; principal; 2018-08-16 17:30)
PROC: 02H63JZ Insertion of Pacemaker Lead into Right Atrium, Percutaneous Approach (ICD-10-PCS; 2018-08-16 17:30)
PROC: 02HK3JZ Insertion of Pacemaker Lead into Right Ventricle, Percutaneous Approach (ICD-10-PCS; 2018-08-16 17:30)
DX: I44.2 Atrioventricular block, complete (principal); I50.30 Unspecified diastolic (congestive) heart failure; I44.1 Atrioventricular block, second degree; I25.10 Atherosclerotic heart disease of native coronary artery without angina pectoris; E04.2 Nontoxic multinodular goiter; E11.9 Type 2 diabetes mellitus without complications; E78.5 Hyperlipidemia, unspecified; E66.01 Morbid (severe) obesity due to excess calories; E87.8 Other disorders of electrolyte and fluid balance, not elsewhere classified; F41.9 Anxiety disorder, unspecified; I11.0 Hypertensive heart disease with heart failure; K59.00 Constipation, unspecified; K11.20 Sialoadenitis, unspecified; M79.89 Other specified soft tissue disorders; N40.0 Benign prostatic hyperplasia without lower urinary tract symptoms; R00.1 Bradycardia, unspecified; R60.0 Localized edema; Z91.81 History of falling; Z98.61 Coronary angioplasty status; Z68.39 Body mass index [BMI] 39.0-39.9, adult; Z79.84 Long term (current) use of oral hypoglycemic drugs
CPT/HCPCS: 36415; 70491; 71045; 71275; 74018; 76536; 80048; 80061; 80069; 82550; 82553; 82962; 83036; 83735; 84100; 84132; 84439; 84443; 84481; 84484; 85025; 85610; 85730; 87081; 93005; 93306; 93970; 94664; 96374; 97110; 97116; 97162; 97167; 97530; 97535; 99285-25